=== PATIENT | male | born 1945 | race African-American/Black ===

== ENCOUNTER 2023-12-27 13:19 | Outpatient (CLI) | payer OTHER, SELFPAY ==
--- NOTE | ~2023-12-27 | CT_ITS ---
EXAMINATION: CT abdomen pelvis w con DATE: 12/27/2023 14:01 INDICATION: Pelvic pain TECHNIQUE: Computed tomography (CT) of the abdomen and pelvis was performed with 100 mL Omnipaque-350 intravenous contrast. Automated exposure control and iterative reconstruction technique were employe d. The dose-length product was 414.70 mGy-cm. COMPARISON: None FINDINGS: Nonspecific 11 x 6 mm right middle lobe nodule. There is mild dependent atelectasis in the bilateral lower lobes and discoid atelectasis at the lingula. Borderline heart size. No pericardial or pleural effusion. Mild intra and extra hepatic biliary ductal dilation likely related to prior cholecystectom y with common bile duct measuring up to 8 mm in maximal diameter. 7 mm subcapsular cyst at the ice skater ior right hepatic lobe. Spleen, pancreas, right kidney and right adrenal gland are normal. There are couple small nodules along the lateral limb of the left adrenal gland measuring up to 1 cm. There is moderate to large amount of stool scattered throughout the colon which could be seen with constipatio n. Small bowel and appendix are normal. Prostatomegaly measuring up to 4.5 x 4.5 cm with lobular libra ins which impresses upon the base of the otherwise normal bladder. No free intraperitoneal gas or flu id. No pathologically enlarged abdominal or pelvic lymphadenopathy. Severe lumbar spondylosis. Modera te bilateral sacroiliac osteoarthritis. There are multiple scattered lytic bone lesions, the largest at the right S1 sacral ala measuring 1.5 cm. A smaller 6 mm lesion at the right iliac wing erodes thr ough the posterior cortex. There are a few small sclerotic lesions in the pelvis including at the rig ht posterior iliac spine, left pubic body and posterior superior to the right acetabulum. IMPRESSION: 1. No acute intra-abdominal/pelvic process. There is however moderate to large amount of colonic stoo l and would correlate for constipation. 2. Several scattered lytic bone lesions to raise concern for multiple myeloma or metastatic disease. Correlate with SPEP/UPEP levels. A few small sclerotic lesions in the pelvis likely represent bone is lands but would also consider bone scan for further evaluation. 3. Prostatomegaly. 4. Indeterminate 11 x 6 mm right middle lobe nodule. If prior outside imaging is unavailable to docum ent stability would recommend further evaluation with either 3 month follow-up low-dose noncontrast c hest CT or PET/CT. 5. A couple small left adrenal nodules measuring up to 1 cm statistically most likely to represent ad enomas. Consider 12 month follow-up adrenal protocol CT or MRI. Reviewed, dictated and finalized at location B. IMPRESSION: 1. No acute intra-abdominal/pelvic process. There is however moderate to large amount of colonic stool and would correlate for constipation. 2. Several scattered lytic bone lesions to raise concern for multiple myeloma o r metastatic disease. Correlate with SPEP/UPEP levels. A few small sclerotic le sions in the pelvis likely represent bone islands but would also consider bone scan for further evaluation. 3. Prostatomegaly. 4. Indeterminate 11 x 6 mm right middle lobe nodule. If prior outside imaging i s unavailable to document stability would recommend further evaluation with eit her 3 month follow-up low-dose noncontrast chest CT or PET/CT. 5. A couple small left adrenal nodules measuring up to 1 cm statistically most likely to represent adenomas. Consider 12 month follow-up adrenal protocol CT o r MRI.
[2023-12-27 13:57] LABS: Estimated Glomerular Filt Rate > 60
== END 2023-12-27 13:20 | disposition home or self-care (01) ==
PROVIDERS: Visit Provider Urology
DX: R10.2 Pelvic and perineal pain (principal); N40.0 Benign prostatic hyperplasia without lower urinary tract symptoms; R91.1 Solitary pulmonary nodule; D35.02 Benign neoplasm of left adrenal gland
CPT/HCPCS: 74177; Q9967

== ENCOUNTER 2024-02-08 08:04 | Outpatient (CLI) | payer OTHER, SELFPAY ==
--- NOTE | 2024-02-08 08:26 | ECG_ITS ---
Test Date: 2024-02-08 08:49:53 Measurements Intervals [place] Rate: 81 P: 32 NC: 139 QRS: -7 QRSD: 105 T: -10 QT: 343 QTc: 398 Interpretive Statements SINUS RHYTHM POSSIBLE LEFT VENTRICULAR HYPERTROPHY [VOLTAGE CRITERIA PLUS LAE OR QRS WIDENING] No previous ECG available for comparison Electronically Signed On 02-08-2024 11:45:52 CDT by Deyvi Cohen M.D.
[2024-02-08 09:20] LABS: Anion Gap 12 mmol/L (4-12); Blood Urea Nitrogen 17 mg/dL (9-20); Calcium 9.7 mg/dL (8.4-10.2); Carbon Dioxide 22 mmol/L (22-30); Chloride 102 mmol/L (98-107); Estimated Glomerular Filt Rate > 60; Glucose 158 mg/dL (65-110); Potassium 4.1 mmol/L (3.4-5.0); Sodium 136 mmol/L (137-145)
== END 2024-02-08 08:05 | disposition home or self-care (01) ==
LOC: ANHSURGERY 08:16
PROVIDERS: Anesthesiology; Visit Provider Urology
DX: Z01.818 Encounter for other preprocedural examination (principal); R10.2 Pelvic and perineal pain; E11.9 Type 2 diabetes mellitus without complications; I10 Essential (primary) hypertension
CPT/HCPCS: 36415; 80048; 87077; 87086; 87186; 93005

== ENCOUNTER 2024-02-13 00:44 | Day surgery (SDC) | payer MEDICARE, SELFPAY ==
[2024-01-08 15:23] VITALS: BMI 24.9
--- NOTE | 2024-01-08 16:03 | PC.NURSE ---
Report to the Outpatient Waiting Room, entrance under the green pavilion located off [facility], at time ___8:00AM____ on date ___01/16/24____. Planned Procedure Time: ___10:00AM .? Time changes happen often and if your time is changed the preop area will call you the afternoon before. - You and your visitor will be asked to self-screen and do not enter if you have any COVID symptoms. Please call surgeon if you need to reschedule. - A mask is optional within the hospital at this time. Patients may have clear liquids (water, carbonated beverages, clear teas, apple juice) until 3 hours prior to surgery with a maximum of 20 ounces. - No food from midnight until time of surgery and no smoking. - Infants may have breast milk until 4 hours before surgery, formula 6 hours prior to surgery. - Children will be allowed to drink immediately following surgery.? If applicable, please bring a bottle or sippy cup to assist with drinking. Juice, water, soda, and popsicles are readily available.? For infants on formula, please bring formula the day of surgery.? Pacifiers are allowed. Take only the following medications with a SIP of water on the morning of surgery: ___AMLODIPINE, GABAPENTIN, HYDRALAZINE. MAY TAKE HYDROCODONE NEEDED FOR PAIN. DO NOT STOP ANY OF YOUR OTHER PRESCRIPTION MEDICATIONS PRIOR TO SURGERY EXCEPT THE FOLLOWING Medications to discontinue per physician HOLD ALL VITAMINS/SUPPLEMENTS 3 DAYS PRE-OP PER ANESTHESIA Date to take last dose 01/12/24 Please no make-up, nail slovenian, hairspray, perfume, deodorant, or body powder the day of surgery.? No jewelry (including any body piercings) or valuables the day of surgery, leave them at home.? Please take a shower or bath the night before, or the morning of, surgery with an antibacterial soap.? Wear comfortable, loose fitting clothing.? Children are encouraged to wear pajamas. - Jewelry must be removed prior to entering the operating room.? Rings and piercings that are not removed may be cut off. - The hospital will not accept responsibility for valuables.? - Please leave all valuables, including medications, at home the day of surgery. If you are going home after surgery, a licensed line haul driver must drive you home.? - NO public transportation without another adult if you receive anesthesia. - We recommend that an adult stay with you for 24 hours following discharge. - We also recommend that you do not drive, make important decision, drink alcoholic beverages, or take any drugs that were not prescribed by your health care provider for at least 24 hours after your discharge time. For Pediatric surgeries, we recommend two adults accompany the child home. Follow any additional instructions given to you from your surgeon. Telephone instructions given to ____PATIENT and asked if any additional questions and then verbalized understanding. Patient advised to call surgeon office or pre surgery nurse liaison [phone] if any additional questions.
--- NOTE | 2024-02-02 11:36 | PC.NURSE ---
Report to the Outpatient Waiting Room, entrance under the green pavilion located off [facility], at time ___10:30AM____ on date ___02/13/24____. Planned Procedure Time: ___12:30PM .? Time changes happen often and if your time is changed the preop area will call you the afternoon before. - You and your visitor will be asked to self-screen and do not enter if you have any COVID symptoms. Please call surgeon if you need to reschedule. - A mask is optional within the hospital at this time. Patients may have clear liquids (water, carbonated beverages, clear teas, apple juice) until 9:30AM 3 hours prior to surgery with a maximum of 20 ounces. - No food from midnight until time of surgery and no smoking. Take only the following medications with a SIP of water on the morning of surgery: ____AMLODIPINE, GABAPENTIN, HYDRALAZINE. MAY TAKE HYDROCODONE NEEDED FOR PAIN. DO NOT STOP ANY OF YOUR OTHER PRESCRIPTION MEDICATIONS PRIOR TO SURGERY EXCEPT THE FOLLOWING Medications to discontinue per physician ____HOLD ALL VITAMINS/SUPPLEMENTS 3 DAYS PRE-OP PER ANESTHESIA Date to take last dose 02/09/24 Please no make-up, nail nepali, hairspray, perfume, deodorant, or body powder the day of surgery.? No jewelry (including any body piercings) or valuables the day of surgery, leave them at home.? Please take a shower or bath the night before, or the morning of, surgery with an antibacterial soap.? Wear comfortable, loose fitting clothing.? - Jewelry must be removed prior to entering the operating room.? Rings and piercings that are not removed may be cut off. - The hospital will not accept responsibility for valuables.? - Please leave all valuables, including medications, at home the day of surgery. If you are going home after surgery, a licensed parcel post truck driver must drive you home.? - NO public transportation without another adult if you receive anesthesia. - We recommend that an adult stay with you for 24 hours following discharge. - We also recommend that you do not drive, make important decision, drink alcoholic beverages, or take any drugs that were not prescribed by your health care provider for at least 24 hours after your discharge time. Follow any additional instructions given to you from your surgeon. Telephone instructions given to ____PATIENT and asked if any additional questions and then verbalized understanding. Patient advised to call surgeon office or pre surgery nurse liaison [phone] if any additional questions.
[2024-02-13] VITALS (8 sets, daily range): BP systolic 113–148; BP diastolic 74–89; PULSE 65–88; RESP 10–16; TEMP 36.3–36.8; O2SAT 100
--- NOTE | 2024-02-13 08:59 | P.PNAN_ITS ---
Anes - Initial Pre Proc Eval Procedure: Operation Date: 02/13/24 12:30 Proposed Procedures p Cystoscopy, Transrectal Ultrasound Biopsy - Alejo Garcia MD Date/Time: 02/13/24 08:59 Surgeon: Alejo Garcia MD Pre Op Diagnosis: pelvic pain, uti Patient Data Age: 78 Gender: M Height: 1.68 m Weight: 70 kg Allergies Allergy/AdvReac Type Severity Reaction Status Date / Time No Known Allergies Allergy Verified 02/02/24 11:28 Home Medications Medication Instructions Recorded Confirmed Type acetaminophen 650 mg 1,300 mg PO Q12H PRN Pain 01/08/24 02/02/24 History tablet,extended release amlodipine 5 mg tablet 5 mg PO QAM 01/08/24 02/02/24 History ergocalciferol (vitamin D2) 1,250 1,250 mcg PO WEEKLY 01/08/24 02/02/24 History mcg (50,000 unit) capsule furosemide 20 mg tablet 20 mg PO QAM 01/08/24 02/02/24 History gabapentin 100 mg capsule 100 mg PO TID 01/08/24 02/02/24 History glimepiride 2 mg tablet 2 mg PO QAM 01/08/24 02/02/24 History hydralazine 25 mg tablet 25 mg PO BID 01/08/24 02/02/24 History hydrocodone 7.5 mg-acetaminophen 1 tablet PO Q6-8H PRN Pain 01/08/24 02/02/24 History 325 mg tablet losartan 100 mg tablet 100 mg PO QAM 01/08/24 02/02/24 History metformin 1,000 mg tablet 1,000 mg PO BID 01/08/24 02/02/24 History pravastatin 80 mg tablet 80 mg PO DAILY 01/08/24 02/02/24 History semaglutide 7 mg tablet (Rybelsus) 7 mg PO QAM 01/08/24 02/02/24 History Patient hx anesthesia problems: none Family hx anesthesia problems: none Results Review: All pre-operative results and documents have been reviewed as part of the pre- operative evaluation. COUNTS INCLUDE 234 BEDS AT THE [facility] Past Medical History Medical History (Updated 02/13/24 @ 10:41 by Efrain Gilbert DO) Asthma Diabetes type 2, controlled Hyperlipidemia Hypertension Surgical History Surgical History History of cholecystectomy Social History Social History Smoking status: Never smoker Tobacco type: cigarettes Alcohol use details: QUIT 26 YEARS AGO, NEVER A HEAVY DRINKER PER PT Living arrangements: with family Additional living arrangements comments: DAUGHTER-GALILEA IN [place], [place] Spiritual care concerns: No Anes - Eval Final PreProcedure Day of Procedure 02/13/24 08:59 Patient weight: normal Heart: regular rate and rhythm Lungs: clear to auscultation and normal air movement Airway: Mallampati scale class III Neurological: alert and oriented Last oral intake: >/= 8 hours ASA classification: III Emergent: no Anesthetic plan: proceed Anesthesia type and monitoring: general LMA and standard monitoring Results Review: All pre-operative results and documents have been reviewed as part of the pre- operative evaluation. Informed Consent: The patient's anesthetic plan and its attendant risks and benefits were discussed with the patient/family/POA. Questions were solicited and answers provided to the satisfaction of the patient/family/POA.
--- NOTE | 2024-02-13 10:31 | PM.IMHP ---
H&P: HPI History of Present Illness Date/Time: 02/13/24 10:31 Chief Complaint: elevated psa and pelvic pain Narrative: 78 yr old male with long standing pelvic pain afte laser turp by outside urologist. Also with elevated psa of 5. Presents for cysto and trus with prostate biopsy. Ct Revealed sclerotic bony lesions with multiple myeloma and mets in differential. Discussed with patient to discuss with his primarty care. Copy of ct given to patient. Review of Systems Review of Systems: All systems reviewed & are unremarkable except as noted in HPI and below PMFSH Past Medical History Medical History Asthma Hyperlipidemia Hypertension Surgical History Surgical History History of cholecystectomy Social History Social History Smoking status: Never smoker Tobacco type: cigarettes Alcohol use details: QUIT 26 YEARS AGO, NEVER A HEAVY DRINKER PER PT Living arrangements: with family Additional living arrangements comments: DAUGHTER-GALILEA IN [place], [place] Spiritual care concerns: No Meds Home Medications and Allergies Home Medications Medication Instructions Recorded Confirmed Type acetaminophen 650 mg 1,300 mg PO Q12H PRN Pain 01/08/24 02/02/24 History tablet,extended release amlodipine 5 mg tablet 5 mg PO QAM 01/08/24 02/02/24 History ergocalciferol (vitamin D2) 1,250 1,250 mcg PO WEEKLY 01/08/24 02/02/24 History mcg (50,000 unit) capsule furosemide 20 mg tablet 20 mg PO QAM 01/08/24 02/02/24 History gabapentin 100 mg capsule 100 mg PO TID 01/08/24 02/02/24 History glimepiride 2 mg tablet 2 mg PO QAM 01/08/24 02/02/24 History hydralazine 25 mg tablet 25 mg PO BID 01/08/24 02/02/24 History hydrocodone 7.5 mg-acetaminophen 1 tablet PO Q6-8H PRN Pain 01/08/24 02/02/24 History 325 mg tablet losartan 100 mg tablet 100 mg PO QAM 01/08/24 02/02/24 History metformin 1,000 mg tablet 1,000 mg PO BID 01/08/24 02/02/24 History pravastatin 80 mg tablet 80 mg PO DAILY 01/08/24 02/02/24 History semaglutide 7 mg tablet (Rybelsus) 7 mg PO QAM 01/08/24 02/02/24 History Allergies Allergy/AdvReac Type Severity Reaction Status Date / Time No Known Allergies Allergy Verified 02/02/24 11:28 Exam Const: General: cooperative and comfortable Resp: Effort & Inspection: normal respiratory effort Cardio: Rate: regular rate Rhythm: regular rhythm Assessment and Plan Assessment and plan (1) Elevated PSA: Code(s): R97.20 - Elevated prostate specific antigen [PSA] Status: Acute Assessment and Plan: proceed with trus and prostate biopsy (2) Pelvic pain: Code(s): R10.2 - Pelvic and perineal pain Status: Acute Assessment and Plan: cystoscopy today.
[2024-02-13 10:37] LABS: Glucose Point of Care 132 mg/dl (65-105)
[2024-02-13] MEDS: LACTATED RINGERS 1,000 ML 30 ML IV CONT ×2 (11:00→13:14)
--- NOTE | 2024-02-13 11:40 | SUR.PREOP ---
pt had a + urine culture on 02/08/24. dr villela office started pt on macrobid. pt has had 1 dose on 02/11. dr stauffer is ok to proceed.
--- NOTE | 2024-02-13 12:18 | WPDHPUPDATE1 ---
History and Physical Update Update Date/Time: 02/13/24 12:18 History and Physical has been reviewed, including an updated exam of the patient. There are NO changes in the patient's condition. Risks, benefits, and alternatives have been discussed and questions answered. Patient agrees to proceed with procedure.
[2024-02-13] MEDS: ceFAZolin 2 GM/D5W 50 ML 2 GM/50 ML BAG IVPB (12:29)
--- NOTE | 2024-02-13 13:07 | SUR.OPER ---
Bovie not used
--- NOTE | 2024-02-13 13:15 | W.PM.PROC2 ---
Procedure Note - Detailed Date of Procedure 02/13/24 Pre-op Diagnosis pelvic pain, elevated PSA Post-op Diagnosis Same Procedure Performed A flexible cystoscopy with transrectal ultrasound and prostate biopsy Surgeon Alejo Garcia MD Anesthesia General Description of Procedure Patient was taken the operative suite correctly identified. Once anesthesia was obtained was placed in supine position and prepped draped usual sterile fashion. Sixteen Kiswahili scope inserted into the urethra. There was no urethral strictures. Prostate has evidence of prior laser. There is asymmetry in some residual lobes in upon entering the bladder with retroflexion of the scope E has to lobe protruding into the bladder. There were no tumors noted in the bladder itself. Scope was removed. Patient was then positioned in the decubitus lateral position. Transrectal ultrasound was performed. Volume was 44 cc. Twelve cores were taken in standard fashion. At patient was taken recovery stable condition. Will discuss cystoscopic findings once we receive the biopsy results. Can offer transurethral resection of this but I am not convinced this will take care of his pelvic pain. This completes dictation. Please send a copy of op note to my office. Estimated Blood Loss 0 Drains No Packing No Pathology Yes Complications No immediate complications Condition Stable Disposition PACU
[2024-02-13 13:46] LABS: Glucose Point of Care 105 mg/dl (65-105)
[2024-02-13] MEDS: oxyCODONE HCL (*CRX) 5 MG TAB IR PO (14:08)
== END 2024-02-13 14:44 | disposition home or self-care (01) ==
PROVIDERS: Visit Provider Urology
PROC: 0TBB8ZX Excision of Bladder, Via Natural or Artificial Opening Endoscopic, Diagnostic (ICD-10-PCS; CPT 52204; principal; 2024-02-13 12:30)
DX: N41.1 Chronic prostatitis (principal); R97.20 Elevated prostate specific antigen [PSA]; E11.9 Type 2 diabetes mellitus without complications; E78.5 Hyperlipidemia, unspecified; I10 Essential (primary) hypertension; Z79.84 Long term (current) use of oral hypoglycemic drugs
CPT/HCPCS: 55700; 76872; 82948; A9270; G0416; J0690; J2003; J2405; J2704; J3010; J7120